=== PATIENT | female | born 1960 | race Caucasian/White ===

== ENCOUNTER 2021-07-30 13:40 | Day surgery (SDC) | payer OTHER ==
[~2021-07-30] VITALS: Ht 160 cm; Wt 178.2 kg
[~2021-07-30 13:40] MED LIST: AMOCLA875 PO; HYDR1TAB94 PO
[2021-07-30] MEDS ORDERED: ROSU10TA (13:51)
--- NOTE | 2021-07-30 15:18 | NUR ---
07/30/21 1518 Jailene Marte PATIENT AND SPOUSE NOTIFIED OF DELAY DUE TO PRIOR CASE RUNNING LONG. PATIENT VERBALIZED UNDERSTANDING AND WAS GIVEN A WARM BLANKET. CALL LIGHT WITHIN REACH. PATIENT COMFORTABLE AT THIS TIME
== END 2021-07-30 16:45 | disposition home or self-care (01) ==
LOC: ORSCSDS 13:40
PROVIDERS: Internal Medicine Gastroenterology
PROC: 0D758ZZ Dilation of Esophagus, Via Natural or Artificial Opening Endoscopic (ICD-10-PCS; principal; 2021-07-30 15:00)
PROC: 0DB58ZX Excision of Esophagus, Via Natural or Artificial Opening Endoscopic, Diagnostic (ICD-10-PCS; principal; 2021-07-30 15:00)
PROC: 0DB78ZX Excision of Stomach, Pylorus, Via Natural or Artificial Opening Endoscopic, Diagnostic (ICD-10-PCS; principal; 2021-07-30 15:00)
DX: R13.10 Dysphagia, unspecified (principal); K22.2 Esophageal obstruction; K21.9 Gastro-esophageal reflux disease without esophagitis; K29.70 Gastritis, unspecified, without bleeding; B96.81 Helicobacter pylori [H. pylori] as the cause of diseases classified elsewhere; K44.9 Diaphragmatic hernia without obstruction or gangrene; I10 Essential (primary) hypertension; F41.9 Anxiety disorder, unspecified; Z79.899 Other long term (current) drug therapy
CPT/HCPCS: C1726; J2250; J2405; J2704; J7120

== ENCOUNTER → 2021-10-15 | Outpatient (CLI) | payer OTHER ==
[~2021-10-15] MED LIST changes: +ROSU10TA
[2021-10-15 11:55] LABS: Source, Urine Clean Catch
[2021-10-15 13:23] LABS: Appearance, Urine Hazy (Clear); Bilirubin, Urine Neg (Neg); Blood, Urine 2+ (Neg); Color, Urine Yellow (P-Yellow); Glucose Qualitative, Urine Neg (Neg); Ketones, Urine Neg (Neg); Leukocyte Esterase, Urine 2+ (Neg); Nitrite, Urine Neg (Neg); Protein, Urine 2+ (Neg); Specific Gravity, Urine 1.025 (1.003-1.022); Urobilinogen, Urine NORM (Normal)
[2021-10-15 14:02] LABS: Bacteria Few /hpf; Mucus Heavy (0-Heavy); Squamous Epithelial Cells Many /hpf (Few); White Blood Cells, Urine 25-50 /hpf (0-5)
[2021-10-15 14:03] LABS: Calcium Oxalate Crystals Mod /hpf
[2021-10-17 15:09] LABS: HPV 16 Negative (Negative); HPV 18 Negative (Negative); HPV OTHER HR TYPES Negative (Negative)
== END ==
LOC: LAB SHORT 11:53
PROVIDERS: Obstetrics & Gynecology
DX: Z01.419 Encounter for gynecological examination (general) (routine) without abnormal findings (principal); Z87.440 Personal history of urinary (tract) infections
CPT/HCPCS: 81001; 87086

== ENCOUNTER → 2021-10-27 | Outpatient (CLI) | payer OTHER | END | disposition home or self-care (01) | LOC: LAB 13:00 → LAB SHORT 13:00 | DX: R12 Heartburn (principal); A04.8 Other specified bacterial intestinal infections | CPT/HCPCS: 87338 ==

== ENCOUNTER 2023-08-25 11:34 | Inpatient (IN) | payer OTHER ==
[~2023-08-25] VITALS: Ht 160 cm; Wt 68.1 kg
[2023-08-25 12:54] LABS: BASOPHILS ABSOLUTE AUTO 0.03 K/mm3 (0.00-0.23); BASOPHILS PERCENT AUTO 0 % (0-2); EOSINOPHILS ABSOLUTE AUTO 0.02 K/mm3 (0.00-0.68); EOSINOPHILS PERCENT AUTO 0 % (0-6); Hematocrit 39.9 % (33.0-51.0); Hemoglobin 13.4 g/dL (11.5-16.0); IMMATURE GRAN ABSOLUTE AUTO 0.08 K/mm3 (0.00-0.10); IMMATURE GRAN PERCENT AUTO 1 % (0-1); LYMPHOCYTES ABSOLUTE AUTO 1.17 K/mm3 (0.84-5.20); LYMPHOCYTES PERCENT AUTO 8 % (21-46); MONOCYTES ABSOLUTE AUTO 1.57 K/mm3 (0.16-1.47); MONOCYTES PERCENT AUTO 10 % (4-13); Mean Corpuscular HGB Conc 33.6 g/dL (31.5-36.5); Mean Corpuscular Volume 84 fL (80-100); Mean Platelet Volume 9.9 fL (9.1-12.4); NEUTROPHILS ABSOLUTE AUTO 12.47 K/mm3 (1.96-9.15); NEUTROPHILS PERCENT AUTO 81 % (41-73); Platelet Count 638 K/mm3 (150-400); RDW Coefficient Variation 13.9 % (11.7-14.2); RDW Standard Deviation 42.8 fL (35.1-46.3); Red Blood Cell Count 4.78 M/mm3 (3.80-5.20); White Blood Cell Count 15.34 K/mm3 (4.00-11.30)
[2023-08-25 13:11] LABS: Albumin, Blood 2.7 g/dL (3.4-5.0); Albumin/Globulin Ratio 0.5 (0.8-1.8); Bilirubin, Total 0.8 mg/dL (0.1-1.0); Bun/Creatinine Ratio 13.6 (12.0-20.0); Calcium, Blood 8.7 mg/dL (8.5-10.1); Creatinine, Blood 0.66 mg/dL (0.40-1.00); Globulin, Blood 5.2 g/dL (2.2-4.0); Magnesium, Blood 2.5 mg/dL (1.6-2.4); Potassium, Blood 2.5 mmol/L (3.5-5.5); Total Protein, Blood 7.9 g/dL (6.4-8.2)
[2023-08-25] MEDS ORDERED: ONDA4SO (15:58)
[2023-08-25] MEDS ORDERED: ONDA4 PO (19:29)
[2023-08-25 19:40] LABS: Campylobacter Sp Not Detected (NOT DETECT); Cryptosporidium Not Detected (NOT DETECT); Cyclospora Cayetanensis Not Detected (NOT DETECT); E. Coli O157 Not Detected (NOT DETECT); Enteroaggregative E. coli-EAEC Not Detected (NOT DETECT); Enteropathogenic E. coli-EPEC Not Detected (NOT DETECT); Enterotoxigenic E. coli-ETEC Not Detected (NOT DETECT); Plesiomonas Shigelloides Not Detected (NOT DETECT); Salmonella Sp Not Detected (NOT DETECT); Shiga Toxin-prod E. coli-STEC Not Detected (NOT DETECT); Shigella/Enteroin E. coli-EIEC Not Detected (NOT DETECT); Vibrio Cholerae Not Detected (NOT DETECT); Vibrio Sp Not Detected (NOT DETECT); Yersinia Enterocolitica Not Detected (NOT DETECT)
[2023-08-25 19:41] LABS: Adenovirus F 40/41 Not Detected (NOT DETECT); Astrovirus Not Detected (NOT DETECT); Entamoeba Histolytica Not Detected (NOT DETECT); Giardia Lamblia Not Detected (NOT DETECT); Norovirus GI/GII Not Detected (NOT DETECT); Rotavirus A Not Detected (NOT DETECT); Sapovirus Not Detected (NOT DETECT)
[2023-08-25 20:53] VITALS: BP 127/69
[2023-08-25] MEDS ORDERED: OMEP20ER PO (20:53)
[2023-08-26 02:51] VITALS: BP 120/70
[2023-08-26 04:51] LABS: Hematocrit 33.9 % (33.0-51.0); Hemoglobin 11.2 g/dL (11.5-16.0); Mean Corpuscular HGB 28.1 pg (26.0-34.0); Mean Corpuscular Volume 85 fL (80-100); Mean Platelet Volume 9.6 fL (9.1-12.4); Platelet Count 548 K/mm3 (150-400); RDW Coefficient Variation 14.1 % (11.7-14.2); Red Blood Cell Count 3.98 M/mm3 (3.80-5.20); White Blood Cell Count 8.54 K/mm3 (4.00-11.30)
--- NOTE | 2023-08-26 05:10 | NUR ---
SHIFT SUMMERY. PT RESTING IN BED. PT HAS BEEN SEEMING TO SLEEP WELL. PT HAD REQUEATED SOMETHING TO HELP HER SLEEP. PT HAD STATED SHE HAS BEEN SICK WITH THE FLUE FOR 2 WEEKS AND NOT SLEPT WELL DURING THAT TIME, PT ABLE TO AMBULATE TO BR WITH OUT DIZZYNESS OR WEAKNESS. PT CALM AND COOPEARTIVE. CALL LIGHT IN REACH.
[2023-08-26 05:48] LABS: Bun/Creatinine Ratio 13.3 (12.0-20.0); Calcium, Blood 8.1 mg/dL (8.5-10.1); Creatinine, Blood 0.6 mg/dL (0.40-1.00); Magnesium, Blood 2.8 mg/dL (1.6-2.4); Potassium, Blood 2.5 mmol/L (3.5-5.5)
[2023-08-26 07:47] VITALS: BP 123/71
[2023-08-26 16:10] VITALS: BP 125/73
--- NOTE | 2023-08-26 18:45 | NUR ---
PATIENT A/OX4, UP INDEPENDENTLY IN ROOM. ADVANCED DIET THIS EVENING TO ADA DIET AND PATIENT DENIES ANY NAUSEA. ONE EPISODE OF DIARRHEA THIS MORNING. NS AT 75ML/HR INFUSING. POTASSIUM 2.5 THIS AM AND ORAL AND IV REPLACEMENT GIVEN. SKIN INTACT. CALM AND COOPERATIVE WITH CARE. DENIES ANY PAIN. NO NEW CONCERNS THIS SHIFT.
[2023-08-26 20:05] VITALS: BP 118/66
[2023-08-27 02:48] VITALS: BP 108/68
--- NOTE | 2023-08-27 04:50 | NUR ---
SHIFT SUMMERY, PT STATED SHE IS FEELING MUCH BETTER THAN THE DAY BEFORE. PT HAS SEEMED TO HAVE SLEPT TONIGHT. CALL LIGHT IN REACH .
[2023-08-27 05:52] LABS: Hematocrit 31.5 % (33.0-51.0); Hemoglobin 10.2 g/dL (11.5-16.0); Mean Corpuscular HGB 28.3 pg (26.0-34.0); Mean Corpuscular HGB Conc 32.4 g/dL (31.5-36.5); Mean Corpuscular Volume 87 fL (80-100); RDW Coefficient Variation 14.4 % (11.7-14.2); Red Blood Cell Count 3.61 M/mm3 (3.80-5.20); White Blood Cell Count 6.59 K/mm3 (4.00-11.30)
[2023-08-27 06:04] LABS: Anion Gap 5 mmol/L (6-16); Blood Urea Nitrogen 5 mg/dL (8-24); Bun/Creatinine Ratio 8.6 (12.0-20.0); CO2, Blood 26 mmol/L (21-32); Calcium, Blood 7.9 mg/dL (8.5-10.1); Chloride, Blood 110 mmol/L (98-108); Creatinine, Blood 0.58 mg/dL (0.40-1.00); Ferritin, Serum 522 ng/mL (8-252); Glomerular Filtration Rate 102 (60-); Glucose, Blood 94 mg/dL (70-99); Iron Serum 30 ug/dL (50-170); Magnesium, Blood 2.3 mg/dL (1.6-2.4); Percent Saturation 11.4 % (15.0-50.0); Phosphorus, Blood 1.9 mg/dL (2.5-4.9); Potassium, Blood 3.5 mmol/L (3.5-5.5); Sodium, Blood 141 mmol/L (136-145); Total Iron Binding Capacity 264 ug/dL (250-450)
[2023-08-27 08:01] VITALS: BP 122/81
[2023-08-27 08:30] LABS: BASOPHILS PERCENT MAN 0 % (0-2); EOSINOPHILS ABSOLUTE MAN 0.06 K/mm3 (0.00-0.68); EOSINOPHILS PERCENT MAN 1 % (0-6); LYMPHOCYTES ABSOLUTE MAN 1.31 K/mm3 (0.84-5.20); LYMPHOCYTES PERCENT MAN 20 % (21-46); MONOCYTES ABSOLUTE MAN 0.72 K/mm3 (0.16-1.47); MONOCYTES PERCENT MAN 11 % (4-13); NEUTROPHILS ABSOLUTE MAN 4.48 K/mm3 (1.96-9.15); SEG NEUTROPHILS PERCENT MAN 68 % (41-73); TOTAL CELLS COUNTED 100
[2023-08-27 08:33] LABS: Platelet Count 568 K/mm3 (150-400)
[2023-08-27] MEDS ORDERED: NYSTATIN100000 U10 MT (11:10)
[2023-08-27 17:18] VITALS: BP 116/68
--- NOTE | 2023-08-27 19:57 | NUR ---
DISCHARGE SUMMARY PATIENT WITH NO ACUTE EVENTS TODAY, SHE TOLERATED ALL PO INTAKE WITH MEALS. MEDICATED PER EMAR. MEDICATION AND EDUCATION PACKET PRINTED AND SIGNED BY PATIENT. ALL QUESTIONS ANSWERED. IVS REMOVED BY BICYCLE SUBASSEMBLER. PATIENT LEFT UNIT WITH SON VIA TRANSPORT CHAIR AT 1830 AND AN WITH HIM VIA PRIVATE VEHICLE TO HER HOME.
== END 2023-08-27 18:47 | disposition home or self-care (01) | DRG 641 ==
LOC: ER 11:34 → MEDS 11:35
PROVIDERS: Emergency Medicine; Internal Medicine; Nurse Practitioner Acute Care; Physician Assistant; ADMIT Internal Medicine
DX: E87.6 Hypokalemia (principal); B37.0 Candidal stomatitis; R65.10 Systemic inflammatory response syndrome (SIRS) of non-infectious origin without acute organ dysfunction; K52.9 Noninfective gastroenteritis and colitis, unspecified; D50.9 Iron deficiency anemia, unspecified; D75.838 Other thrombocytosis; E83.39 Other disorders of phosphorus metabolism; D72.829 Elevated white blood cell count, unspecified; E11.9 Type 2 diabetes mellitus without complications; K21.9 Gastro-esophageal reflux disease without esophagitis; R94.31 Abnormal electrocardiogram [ECG] [EKG]; E86.0 Dehydration; J11.1 Influenza due to unidentified influenza virus with other respiratory manifestations; I48.91 Unspecified atrial fibrillation
CPT/HCPCS: 36415; 71045; 80048; 80053; 80069; 82728; 82947; 83540; 83550; 83735; 84132; 85025; 85027; 87507; 93005; 93010; 96365; 96366; 96368; 96372; 96375; 96376; 99285-25; A9270; C9113; G0378; J1650; J2405; J3475; J3480; J7030; J7050; J7060